=== PATIENT | male | born 1995 | race Caucasian/White ===

== ENCOUNTER → 2021-02-04 | Outpatient (REF) ==
--- NOTE | 2021-02-05 08:46 | REP ---
INDICATION: DDD COMPARISON: None. TECHNIQUE: AP, lateral, bilateral oblique views right hand. FINDINGS: The osseous structures and joint spaces are intact and normal. There is no evidence for acute fracture or dislocation. Surrounding soft tissues are unremarkable. No subcutaneous emphysema or radiodense foreign body. No evidence for degenerative changes. IMPRESSION: Normal age-appropriate examination.. No acute fracture or dislocation. <Electronically signed by Bradley Booth > 02/05/21 [id number]
== END ==
LOC: M PLAIMG 14:13
PROVIDERS: ATTEND Internal Medicine
DX: S69.91XA Unspecified injury of right wrist, hand and finger(s), initial encounter (principal); Y92.89 Other specified places as the place of occurrence of the external cause; Y93.89 Activity, other specified; Y99.8 Other external cause status